=== PATIENT | female | born 1990 | race Caucasian/White ===

== ENCOUNTER → 2017-08-23 | Outpatient (REF) | payer OTHER ==
[2017-08-23 14:01] LABS: ALBUMIN/GLOBULIN RATIO 1.29 (1.00-1.93); ALKALINE PHOSPHATASE 39 U/L (45-117); ALT/SGPT 39 U/L (12-78); ANION GAP 6 MEQ/L (8-16); AST/SGOT 19 U/L (7-37); BILIRUBIN,TOTAL 0.6 MG/DL (0.2-1.0); BLOOD UREA NITROGEN 23 MG/DL (7-18); CALCIUM LEVEL 9.2 MG/DL (8.5-10.1); CARBON DIOXIDE LEVEL 29 MEQ/L (21-32); CHLORIDE LEVEL 103 MEQ/L (98-107); CREATININE FOR GFR 0.59 MG/DL (0.55-1.30); GLOMERULAR FILTRATION RATE > 60.0 (>60); GLUCOSE, FASTING 115 MG/DL (70-100); POTASSIUM SERUM 3.8 MEQ/L (3.5-5.1); SODIUM LEVEL 138 MEQ/L (136-145); TOTAL PROTEIN 7.1 GM/DL (6.4-8.2)
[2017-08-23 14:20] LABS: FOLATE 14.9 NG/ML; TOTAL 25(OH) VITAMIN D 17.1 NG/ML (30.0-100.0); VITAMIN B12 LEVEL 584 PG/ML
[2017-08-23 18:08] LABS: BASO % 0.1 % (0.0-1.0); EOS % 0.1 % (0.0-3.0); HEMATOCRIT 44.7 % (36.0-47.0); HEMOGLOBIN 15.2 g/dl (12.0-16.0); IMMATURE GRANULOCYTE % 0.5 % (0-3.0); LYMPH % 7.4 % (24.0-44.0); MEAN CORPUSCULAR HEMOGLOBIN 29.6 pg (27.0-33.0); MONO % 6.9 % (0.0-5.0); NEUTROPHILS # 11.7 10^3/uL (1.8-7.7); PLATELET COUNT, AUTOMATED 237 10^3/uL (150-450); RED BLOOD COUNT 5.14 10^6/uL (4.00-5.40); RED CELL DISTRIBUTION WIDTH 13.5 % (11.5-14.5); WHITE BLOOD COUNT 13.8 10^3/uL (4.0-10.0)
== END ==
LOC: M LABNEURO 10:34
DX: G35 Multiple sclerosis (principal)
CPT/HCPCS: 82746

== ENCOUNTER → 2017-10-30 | Outpatient (CLI) | payer OTHER ==
[~2017-10-30] MED LIST: LIDOCAINE 1% SDV INJ 30 ML VIAL As Ordered; MIDAZOLAM INJ 2 MG/2 ML VIAL (J2250) As Ordered; ONDANSETRON 4MG/2ML VIAL (J2405) As Ordered; fentaNYL 100 MCG/2 ML INJECTION (J3010) As Ordered
[2017-10-30 15:15] LABS: CSF RBC < 2 10^3/uL (<2)
[2017-10-30 15:16] LABS: APPEARANCE, CSF CLEAR (CLEAR); COLOR, CSF COLORLESS (COLORLESS); CSF DIFF IF INDICATED? NO (NO); CSF TUBE# CELL CNT TUBE 3; CSF WBC 5 /uL (0-10)
[2017-10-30 15:40] LABS: CSF TUBE# GLU TUBE 1; CSF TUBE# TP TUBE 1; GLUCOSE CSF 48 MG/DL (40-75); TOTAL PROTEIN,CSF 30.7 MG/DL (15-45)
== END ==
LOC: M PAIN 12:30
DX: G35 Multiple sclerosis (principal); H46.9 Unspecified optic neuritis; G37.9 Demyelinating disease of central nervous system, unspecified; M54.5 Low back pain; G89.29 Other chronic pain; M47.812 Spondylosis without myelopathy or radiculopathy, cervical region; M47.817 Spondylosis without myelopathy or radiculopathy, lumbosacral region
CPT/HCPCS: J2405